=== PATIENT | female | born 1985 | race American Indian/Alaskan Native ===

== ENCOUNTER 2018-04-19 05:12 | Emergency (ER) | payer SELFPAY ==
[2018-04-19 05:16] VITALS: BMI 27.4
--- NOTE | 2018-04-19 06:03 | ED PDOC ---
Arrival/HPI - General Chief Complaint: Chest Pain Time Seen by Provider: 04/19/18 05:16 Historian: Patient - History of Present Illness Narrative History of Present Illness (Text): 04/19/18 05:58 32 year old female, with no significant past medical history, presents to the Emergency department complaining of chest pain associated with non productive cough since 1 week. Patient states intermittent chest discomfort when coughing and requests medical evaluation. Patient denies any fever, chills, nausea, vomiting, diarrhea, abdominal pain, shortness of breath or any other complaints. Patient denies any prescription medications or control pills. Time/Duration: 1 week Symptom Onset: Gradual Symptom Course: Unchanged Quality: Aching Activities at Onset: Light Context: Home Past Medical History - Provider Review Nursing Documentation Reviewed: Yes - Cardiac Hx Cardiac Disorders: No Hx Hypertension: No - Psychiatric Hx Depression: No Hx Substance Use: No Family/Social History - Physician Review Nursing Documentation Reviewed: Yes Family/Social History: No Known Family HX Smoking Status: no Hx Alcohol Use: No Hx Substance Use: No Allergies/Home Meds Allergies/Adverse Reactions: Allergies No Known Allergies Allergy (Verified 11/14/17 19:38) Review of Systems - Physician Review All systems were reviewed & negative as marked: Yes - Review of Systems Constitutional: Normal. absent: Fevers Eyes: Normal ENT: Normal Respiratory: Cough. absent: SOB Cardiovascular: Chest Pain Gastrointestinal: Normal. absent: Abdominal Pain, Diarrhea, Nausea, Vomiting Genitourinary Female: Normal Musculoskeletal: Normal Skin: Normal Neurological: Normal Endocrine: Normal Hemo/Lymphatic: Normal Psychiatric: Normal Physical Exam Vital Signs Reviewed: Yes Vital Signs Temp Pulse Resp BP Pulse Ox 04/19/18 05:13 98.1 F 76 18 143/80 100 Temperature: Afebrile Blood Pressure: Normal Pulse: Regular Respiratory Rate: Normal Appearance: Positive for: Well-Appearing, Non-Toxic, Comfortable Pain Distress: None Mental Status: Positive for: Alert and Oriented X 3 - Systems Exam Head: Present: Atraumatic, Normocephalic Pupils: Present: PERRL Extroacular Muscles: Present: EOMI Conjunctiva: Present: Normal Mouth: Present: Moist Mucous Membranes Neck: Present: Normal Range of Motion Respiratory/Chest: Present: Clear to Auscultation, Good Air Exchange. No: Respiratory Distress, Accessory Muscle Use Cardiovascular: Present: Regular Rate and Rhythm, Normal S1, S2. No: Murmurs Abdomen: No: Tenderness, Distention, Peritoneal Signs Back: Present: Normal Inspection Upper Extremity: Present: Normal Inspection. No: Cyanosis, Edema Lower Extremity: Present: Normal Inspection. No: Edema Neurological: Present: GCS=15, CN II-XII Intact, Speech Normal Skin: Present: Warm, Dry, Normal Color. No: Rashes Psychiatric: Present: Alert, Oriented x 3, Normal Insight, Normal Concentration Medical Decision Making ED Course and Treatment: 04/19/18 06:03 Impression: 32 year old female presents to the Emergency department for chest pain associated with non productive cough. Plan: -- EKG -- Chest X-ray -- Reassess and disposition Prior Visits: Notes and results from previous visits were reviewed. Progress Notes: 04/19/18 06:00 EKG: Ordered, reviewed, and independently interpreted the EKG. Rate : 91 BPM Rhythm : NSR Interpretation : No ST-segment elevations or depressions, no T-wave inversions, normal intervals. - RAD Interpretation Radiology Orders: 04/19/18 05:55 CHEST PORTABLE [RAD] Stat - EKG Interpretation Interpreted by ED Physician: Yes Type: 12 lead EKG - Scribe Statement The provider has reviewed the documentation as recorded by the Scribe Zachary Connolly. All medical record entries made by the Scribe were at my direction and personally dictated by me. I have reviewed the chart and agree that the record accurately reflects my personal performance of the history, physical exam, medical decision making, and the department course for this patient. I have also personally directed, reviewed, and agree with the discharge instructions and disposition. Disposition/Present on Arrival - Present on Arrival Any Indicators Present on Arrival: No History of DVT/PE: No History of Uncontrolled Diabetes: No Urinary Catheter: No History of Decub. Ulcer: No History Surgical Site Infection Following: None - Disposition Have Diagnosis and Disposition been Completed?: Yes Diagnosis: Bronchitis Disposition: HOME/ ROUTINE Disposition Time: 06:41 Patient Plan: Discharge Condition: GOOD Discharge Instructions (ExitCare): Acute Bronchitis, Adult (DC) Additional Instructions: Take meds as prescribed/drink plenty of liquids/follow up with your doctor this week Prescriptions: Benzonatate [Tessalon Perles] 100 mg PO TID PRN #21 sgl PRN Reason: Cough Azithromycin [Zithromax] 250 mg PO DAILY #6 tab Referrals: Apoorva Villafuerte DO [Primary Care Provider] - Follow up with primary Forms: [email or web address] (Uzbek)
[2018-04-19 06:33] VITALS: BP 143/80; PULSE 76; RESP 18; TEMP 98.1
[2018-04-19 07:26] VITALS: O2SAT 99
--- NOTE | 2018-04-19 10:36 | RAD ---
HISTORY: Cough COMPARISON: No prior. FINDINGS: LUNGS: No active pulmonary disease. PLEURA: No significant pleural effusion identified, no pneumothorax apparent. CARDIOVASCULAR: Normal. OSSEOUS STRUCTURES: No significant abnormalities. VISUALIZED UPPER ABDOMEN: Normal. OTHER FINDINGS: None. IMPRESSION: No active disease.
--- NOTE | 2018-04-19 17:00 | CARD ---
APPROVED REPORT EKG Measurement Heart [id number] <Conclusion> Normal sinus rhythm Normal ECG
== END 2018-04-19 06:57 | disposition home or self-care (01) ==
LOC: ED 05:12
DX: J40 Bronchitis, not specified as acute or chronic (principal)

== ENCOUNTER 2018-04-26 13:21 | Emergency (ER) | payer MEDICAID, OTHER ==
[2018-04-26 13:22] VITALS: BMI 27.4
[2018-04-26 13:36] VITALS: RESP 18
--- NOTE | 2018-04-26 13:40 | ED PDOC ---
Arrival/HPI - General Chief Complaint: Rib Injury Time Seen by Provider: 04/26/18 13:39 Historian: Patient - History of Present Illness Narrative History of Present Illness (Text): 04/26/18 13:40 32 year old female, whose PMH includes recent bronchitis, who presents to the emergency department complaining of worsening left sided rib pain since one week. patient reports she has been coughing due to her bronchitis since 3 weeks , but the pain has become worse when deep breathing and laying down. Patient notes taking 2 Tylenol's with no significant change. Patient denies chest pain, shortness of breath, abdominal pain, vomiting, fall or trauma. PMD: Dr. Chandler Time/Duration: 1 week Symptom Onset: Gradual Symptom Course: Worsening Activities at Onset: Rest Context: Home Past Medical History - Provider Review Nursing Documentation Reviewed: Yes - Cardiac Hx Cardiac Disorders: No Hx Hypertension: No - Psychiatric Hx Depression: No Hx Substance Use: No Family/Social History - Physician Review Nursing Documentation Reviewed: Yes Family/Social History: Unknown Family HX Smoking Status: Never Smoked Hx Alcohol Use: No Hx Substance Use: No Allergies/Home Meds Allergies/Adverse Reactions: Allergies No Known Allergies Allergy (Verified 04/26/18 13:36) Review of Systems - Review of Systems Constitutional: absent: Fevers Respiratory: Cough. absent: SOB Cardiovascular: absent: Chest Pain Gastrointestinal: absent: Abdominal Pain, Vomiting Genitourinary Female: absent: Dysuria, Frequency Musculoskeletal: Other (left sided rib pain ) Neurological: absent: Headache Endocrine: absent: Diaphoresis Physical Exam Vital Signs Reviewed: Yes Vital Signs Temp Pulse Resp BP Pulse Ox 04/26/18 14:53 98.4 F 73 18 125/79 99 04/26/18 13:30 98.2 F 101 H 18 133/98 H 98 Temperature: Afebrile Blood Pressure: Hypertensive Pulse: Tachycardic Respiratory Rate: Normal Appearance: Positive for: Well-Appearing, Non-Toxic, Comfortable Pain Distress: None Mental Status: Positive for: Alert and Oriented X 3 - Systems Exam Head: Present: Atraumatic, Normocephalic Pupils: Present: PERRL Extroacular Muscles: Present: EOMI Conjunctiva: Present: Normal Respiratory/Chest: Present: Clear to Auscultation, Good Air Exchange, Tender to Palpation (anterior left sided lower rib tenderness ). No: Respiratory Distress , Accessory Muscle Use, Wheezes, Rales Cardiovascular: Present: Regular Rate and Rhythm, Normal S1, S2. No: Murmurs Abdomen: No: Tenderness, Distention, Peritoneal Signs Neurological: Present: GCS=15, CN II-XII Intact, Speech Normal Skin: Present: Warm, Dry, Normal Color. No: Rashes Psychiatric: Present: Alert, Oriented x 3, Normal Insight, Normal Concentration Medical Decision Making ED Course and Treatment: 04/26/18 Impression: 32 year old with anterior left sided lower rib tenderness complaining of left sided rib pain. Differential Diagnosis included but are not limited to: muscular rib strain vs. costochondritis Plan: -- Flexeril, Motrin -- Left ribs x-ray -- Reassess and disposition Progress Notes: 04/26/18 14:56 Patient feels better. She was advised not to drive on flexeril because it may cause drowsiness. Her Xray was normal which I reviewed with her. I advised to follow up with her primary care doctor. - RAD Interpretation Radiology Orders: 04/26/18 13:47 RIBS LEFT & PA CHEST [RAD] Stat Delivery Person: Radiologist - Medication Orders Current Medication Orders: Discontinued Medications Cyclobenzaprine HCl (Flexeril) 5 mg PO STAT STA Stop: 04/26/18 13:48 Last Admin: 04/26/18 13:53 Dose: 5 mg Ibuprofen (Motrin Tab) 600 mg PO STAT STA Stop: 04/26/18 13:48 Last Admin: 04/26/18 13:53 Dose: 600 mg MAR Pain/Vitals Document 04/26/18 13:53 EWO (Rec: 04/26/18 13:53 KEVIN [id number]) Pain Reassessment Is This A Pain ReAssessment? No - Scribe Statement The provider has reviewed the documentation as recorded by the Scribe Rohini Pineda Provider Scribe Attestation: All medical record entries made by the Scribe were at my direction and personally dictated by me. I have reviewed the chart and agree that the record accurately reflects my personal performance of the history, physical exam, medical decision making, and the department course for this patient. I have also personally directed, reviewed, and agree with the discharge instructions and disposition. Disposition/Present on Arrival - Present on Arrival Any Indicators Present on Arrival: No History of DVT/PE: No History of Uncontrolled Diabetes: No Urinary Catheter: No History of Decub. Ulcer: No History Surgical Site Infection Following: None - Disposition Have Diagnosis and Disposition been Completed?: Yes Diagnosis: Rib pain on left side, Muscular aches Disposition Time: 14:57 Patient Plan: Discharge Patient Problems: Current Active Problems Problem Status Onset Muscular aches Acute Rib pain on left side Acute Condition: IMPROVED Discharge Instructions (ExitCare): Pleuritic Chest Pain, Muscle and Bone Pain ( DC) Additional Instructions: KAM YARBROUGH, thank you for letting us take care of you today. Your provider was Fausto Henley DO and you were treated for Left Rib Pain, Musculoskeletal. The emergency medical care you received today was directed at your acute symptoms. If you were prescribed any medication, please fill it and take as directed. It may take several days for your symptoms to resolve. Return to the Emergency Department if your symptoms worsen, do not improve, or if you have any other problems. Please contact your doctor or call one of the physicians/clinics you have been referred to that are listed on the Patient Visit Information form that is included in your discharge packet. Bring any paperwork you were given at discharge with you along with any medications you are taking to your follow up visit. Our treatment cannot replace ongoing medical care by a primary care provider outside of the emergency department. Thank you for allowing the [facility] team to be part of your care today. If you had an X-Ray or CT scan: A Radiologist will review the ED reading if any change in treatment is needed we will contact you. If you had a blood, urine, or wound culture: It will take several days for the results, if any change in treatment is needed we will contact you. If you had an STI test: It will take 48 hours for the results. Please call after 1 week if you have not heard back. Prescriptions: Cyclobenzaprine [Flexeril] 5 mg PO TID PRN #20 tab PRN Reason: Muscle Spasm Ibuprofen [Motrin] 600 mg PO Q6 PRN #30 tab PRN Reason: Pain, Moderate (4-7) Referrals: Apoorva Villafuerte DO [Family Provider] - Follow up with primary Forms: [employer] (Romanian), WORK NOTE
[2018-04-26 14:54] VITALS: BP 125/79; PULSE 73; TEMP 98.4; O2SAT 99
--- NOTE | 2018-04-26 15:12 | RAD ---
PROCEDURE: Radiographs of the Chest and Left Ribs. HISTORY: Cough, pain (no traumatic event) left anterior lower ribs. COMPARISON: 04/19/2018 single-view chest. TECHNIQUE: Frontal radiograph of the chest and multiple oblique radiographs of the left ribs were obtained. FINDINGS: LEFT RIBS: No fracture or focal lesion visualized. LUNGS: Clear. PLEURA: No pneumothorax or pleural fluid. CARDIOVASCULAR: Normal sized heart. No pulmonary vascular congestion. OTHER FINDINGS: None. IMPRESSION: Unremarkable radiographs of the chest and left ribs. No left rib fracture.
== END 2018-04-26 15:27 | disposition home or self-care (01) ==
LOC: ED 13:21
DX: R07.81 Pleurodynia (principal); M79.1 Myalgia